=== PATIENT | female | born 1960 | race Caucasian/White ===

== ENCOUNTER → 2016-12-27 | Outpatient (CLI) | payer OTHER | END | disposition disaster alternative care site (69) | LOC: GSLP 12-20 14:46 | DX: R09.02 Hypoxemia (principal); Z53.9 Procedure and treatment not carried out, unspecified reason | CPT/HCPCS: G0399 ==

== ENCOUNTER → 2016-12-29 | Outpatient (CLI) | payer OTHER ==
--- NOTE | ~2016-12-29 | PUL ---
PATIENT'S NAME: MASSIEL RODRIGUEZ [facility] AGE: 56 Y [address] ROOM: [place] [address] LOCATION: [facility] ADMIT DATE: 12/29/2016 Pulmonary DISCHARGE DATE: FAMILY PHYSICIAN: Michelle Vuong APRN ATTENDING PHYSICIAN: Michelle Vuong NAME OF PROCEDURE: Home sleep test DATE OF PROCEDURE: 12/29/16 TECH: SARAH Barillas SUMMARY: The patient underwent home sleep testing using a type III device and was studied for 5 hours 17 minutes. In that time there were 20 obstructive apneas and 37 hypopneas for an apnea/hypopnea index mildly elevated at 10.8 events per hour. Virtually all the events occurred with the patient supine although the patient slept supine 95% of the night. Oxygen saturations ranged from 82-94%. Heart rate ranged from 69-109 bpm. IMPRESSION: Mild obstructive sleep apnea. PLAN: Patient will receive results from the ordering provider. MD ARELIS AMES/ /[id number] dtt: 01/18/17 1252 , Raoul Dang dtd: 01/02/17 1537
== END | disposition disaster alternative care site (69) ==
LOC: GSLP 09:00
DX: G47.33 Obstructive sleep apnea (adult) (pediatric) (principal)
CPT/HCPCS: G0399

== ENCOUNTER → 2017-02-05 | Outpatient (CLI) | payer OTHER | END | disposition disaster alternative care site (69) | LOC: GRAD 07:32 | DX: M25.512 Pain in left shoulder (principal); Z98.890 Other specified postprocedural states ==

== ENCOUNTER → 2017-03-29 | Outpatient (CLI) | payer OTHER | END | disposition disaster alternative care site (69) | LOC: GBCOE 03-21 09:00 | DX: Z12.31 Encounter for screening mammogram for malignant neoplasm of breast (principal) | CPT/HCPCS: G0202 ==